=== PATIENT | female | born 1955 | race Caucasian/White ===

== ENCOUNTER → 2018-02-09 08:23 | Outpatient (CLI) | payer OTHER, SELFPAY ==
--- NOTE | 2018-02-09 08:27 | BI_ITS ---
MAMMOGRAPHY - BILATERAL SCREENING REASON FOR EXAM: Female, 62 years old. Routine annual screening examination. PERTINENT HISTORY: Aunt with breast cancer. TECHNIQUE: Digital bilateral breast devorah (3D mammographic acquisition) in the CC and MLO projections. 2-D mediolateral oblique (MLO) and craniocaudad (CC) views of both breasts were obtained. CAD: Full Field Digital Mammography with Computer Added Detection was performed. COMPARISON: Comparison is made with prior abdomen examination dated March 14, 2017. FINDINGS: Breast Composition: There are scattered areas of fibroglandular density. There are no dominant masses or suspicious calcifications. Stable small bilateral axillary lymph nodes. No other significant abnormalities are identified. There has been no significant change since the prior study. BI/SCREENING MAMM (CAD), BILAT IMPRESSION: Stable bilateral screening mammogram. Yearly follow-up mammogram recommended. (A) ASSESSMENT CATEGORY: BIRADS Category 2: Benign. A letter regarding these results will be sent to the patient by the facility within 30 days. Approximately 10% of breast cancers are not detected by mammography. A normal mammogram should not delay biopsy of a clinically suspicious abnormality. [id number] Electronically Signed: Delfino Zhang MD at 9:32 EDT Tel [phone], Service support ,
== END ==
PROVIDERS: Visit Provider Nurse Practitioner Women's Health
DX: Z12.31 Encounter for screening mammogram for malignant neoplasm of breast (principal)
CPT/HCPCS: 77063; 77067

== ENCOUNTER → 2018-11-19 09:43 | Outpatient (CLI) | payer OTHER, SELFPAY ==
--- NOTE | 2018-11-19 10:02 | US_ITS ---
STUDY: ABDOMINAL ULTRASOUND - RIGHT UPPER QUADRANT REASON FOR VISIT: Female, 63 years old. 2 week history of right upper quadrant pain. TECHNIQUE: Ultrasound evaluation of the right upper quadrant was performed with real-time and static minaya-scale imaging. TECHNICAL QUALITY: Adequate. COMPARISON: None. FINDINGS: Liver: The liver measures 14.7 cm. There is normal echogenicity of the liver. The bile ducts are within normal limits. There is hepatic color flow. The direction of portal flow is hepatopetal. There is no demonstrated mass lesion. Gallbladder: Normal distended gallbladder. The gallbladder wall is mildly thickened and measures 3.3 mm. Findings are suggestive of adenomyomatosis of the gallbladder wall. There is a negative sonographic Vasques's sign. There is no pericholecystic fluid. There are no gallstones. Common Bile Duct (C.B.D.): The common bile duct measures 3.2 mm. Pancreas: Normal size of the head, body and tail of the pancreas. There is increased echogenicity of the pancreas. There is no demonstrated pancreatic mass or cyst. Right Kidney: Normal size of the right kidney. The right kidney measures 11 cm x 6.7 cm x 5.4 cm. Normal renal cortex. The right cortex measures 1.5 cm. There is no demonstrated renal mass or cyst. There is no right hydronephrosis. US/Abdomen Limited IMPRESSION: Mild gallbladder wall thickening suggestive of adenomyomatosis. Correlation with the HIDA scan and fatty meal challenge is recommended. Electronically Signed: Delfino Zhang, at 11:27 EDT , Service support ,
[2018-11-19 11:16] LABS: Absolute Lymphocyte Count 0.75 X10^3/uL (0.83-4.51); Absolute Neutrophil Count 5.4 X10^3/uL (2.0-7.7); Basophil# 0.02 X10^3/uL; Basophil% 0.3 % (0-1); Eosinophil# 0.01 X10^3/uL; Eosinophils% 0.2 % (0-5); Hematocrit 39.9 % (37-47); Hemoglobin 12.9 g/dL (12.0-15.0); Lymphocyte # 0.75 X10^3/ul (4.0); Lymphocyte % 11.3 % (19-41); Mean Corp Hgb Conc 32.3 g/dL (32-36); Mean Corpuscular Hgb 29.1 pg (27.0-32.0); Mean Corpuscular Volume 89.9 fL (81-99); Mean Platelet Vol. 12.4 fl (6.2-12.0); Monocyte# 0.43 X10^3/uL; Monocyte% 6.5 % (0-10); NRBC Flagged by Analyzer 0 % (0-5); Neutrophil # 5.43 X10^3/uL (2.7-7.7); Neutrophil % 81.4 % (47-70); Platelet Count 215 K/mm3 (150-450); RBC Distribution Width CV 13.2 % (11.6-14.6); RBC Distribution Width SD 43.3 fl (35.1-43.9); Red Blood Count 4.44 M/mm3 (4.2-5.4); White Blood Count 6.7 K/mm3 (4.4-11.0)
[2018-11-19 11:24] LABS: AST(SGOT) 40 U/L (15-37); Alanine Aminotransfer ALT/SGPT 60 U/L (13-56); Albumin, Serum 3.7 g/dL (3.2-5.0); Alkaline Phosphatase 205 U/L (45-117); Anion Gap 6 (5-15); BUN 7 mg/dL (7-18); BUN/Creat Ratio 10.7 RATIO (10-20); Calcium,Total 9.2 mg/dL (8.5-10.1); Chloride 105 mmol/L (98-107); Creatinine, Serum 0.65 mg/dL (0.55-1.02); EST Glomerular Filtration Rate 97 mL/min (>60); Est Glom Filt Rate - Afr Amer 117 mL/min (>60); Globulin 3.7 g/dL (2.2-4.2); Glucose 111 mg/dL (74-106); Potassium 3.8 mmol/L (3.5-5.1); Protein, Total 7.4 g/dL (6.4-8.2); Sodium Level 138 mmol/L (136-145)
== END ==
PROVIDERS: Referring Provider Nurse Practitioner Family; Visit Provider Nurse Practitioner Family
DX: R10.11 Right upper quadrant pain (principal)
CPT/HCPCS: 36415; 76705; 80053; 85025

== ENCOUNTER 2018-11-23 11:04 | Observation (INO) | payer OTHER, SELFPAY ==
[2018-11-23] VITALS (7 sets, daily range): BP systolic 125–156; BP diastolic 73–87; PULSE 79–109; RESP 16–18; TEMP 36.7–37; O2SAT 93–95; BMI 33.3; BMI 33.7
[2018-11-23] MEDS: Ondansetron 4 MG/2 ML Vial IV (11:53)
[2018-11-23] MEDS: 0.9% Normal Saline 1,000 ML 125 ML IV ×2 (11:53→19:50)
[2018-11-23] MEDS: Morphine 4 MG/ML Syringe IV ×2 (11:53→16:34)
[2018-11-23 12:19] LABS: Absolute Neutrophil Count 5.5 X10^3/uL (2.0-7.7); Basophil# 0.05 X10^3/uL; Basophil% 0.7 % (0-1); Eosinophil# 0.07 X10^3/uL; Hematocrit 42.6 % (37-47); Lymphocyte % 14.1 % (19-41); Mean Corp Hgb Conc 32.9 g/dL (32-36); Mean Corpuscular Hgb 29.1 pg (27.0-32.0); Mean Corpuscular Volume 88.6 fL (81-99); Mean Platelet Vol. 11.3 fl (6.2-12.0); Monocyte# 0.44 X10^3/uL; Monocyte% 6.2 % (0-10); NRBC Flagged by Analyzer 0 % (0-5); Neutrophil # 5.48 X10^3/uL (2.7-7.7); Neutrophil % 77.6 % (47-70); Platelet Count 289 K/mm3 (150-450); RBC Distribution Width CV 13.2 % (11.6-14.6); RBC Distribution Width SD 43.1 fl (35.1-43.9); Red Blood Count 4.81 M/mm3 (4.2-5.4); White Blood Count 7.1 K/mm3 (4.4-11.0)
[2018-11-23 12:25] LABS: ALB/GLOB Ratio 0.8 RATIO (0.9-2.4); AST(SGOT) 17 U/L (15-37); Alanine Aminotransfer ALT/SGPT 35 U/L (13-56); Albumin, Serum 3.3 g/dL (3.2-5.0); Alkaline Phosphatase 195 U/L (45-117); Anion Gap 6 (5-15); BUN 10 mg/dL (7-18); BUN/Creat Ratio 14.4 RATIO (10-20); Chloride 103 mmol/L (98-107); EST Glomerular Filtration Rate 90 mL/min (>60); Est Glom Filt Rate - Afr Amer 109 mL/min (>60); Estimated Creatinine Clearance 70.11 ml/min; Glucose 106 mg/dL (74-106); Lipase 59 U/L (73-393); Potassium 3.4 mmol/L (3.5-5.1); Protein, Total 7.3 g/dL (6.4-8.2); Sodium Level 137 mmol/L (136-145)
--- NOTE | 2018-11-23 12:35 | CT_ITS ---
STUDY: CT ABDOMEN AND PELVIS WITH CONTRAST REASON FOR EXAM: Female, 63 years old. Right upper quadrant pain RADIATION DOSAGE (If Supplied By Facility): CTDIvol = ( 15.99 ) mGy, DLP = ( 1189.81 ) mGycm TECHNIQUE: Transaxial images were obtained from the dome of the diaphragm to the symphysis pubis without oral contrast. 100 IV/Oral Isovue 300 was administered. Sagittal and coronal images were reconstructed. Individualized dose optimization techniques were used for this CT. COMPARISON: None. FINDINGS: The visualized lung bases are unremarkable. The visualized portions of the heart are within normal limits. There is likely chronic elevation of the right hemidiaphragm with atelectasis in the right lung base. Normal liver. Normal gallbladder and extrahepatic biliary system. Normal spleen. Normal pancreas. Normal bilateral adrenal glands. Normal right kidney. Normal left kidney. Normal visualized stomach. Normal small intestine. Retained stool noted in the colon. Scattered sigmoid diverticulosis without CT evidence of acute diverticulitis. There is non-visualization of the appendix. Normal abdominal aorta. Normal inferior vena cava. Normal retroperitoneum. Normal urinary bladder. There is absence of the uterus consistent with a prior hysterectomy. Normal abdominal wall. There are diffuse degenerative changes of the visualized lumbar spine. CT/Abdomen/Pelvis WITH Contrast IMPRESSION: No suspicious solid organ abnormality No CT evidence of an acute inflammatory process No free peritoneal fluid, air, or suspicious adenopathy Electronically Signed: Ritchie Dunham MD at 15:27 EDT , Service support ,
[2018-11-23 13:00] LABS: Bacteria 0 SEEN /hpf (None Seen); Mucous, Urine 0 SEEN /hpf (<or=2+); Red Blood Cells-Urine 0 SEEN /hpf (0-5); White Blood Cells 0 SEEN /hpf (0-5)
[2018-11-23 13:06] LABS: Color, Urine Yellow (Yellow); Glucose, Dipstick Normal (Normal); Ketone-Dipstick Negative (Negative); Leukocyte Esterase-Dipstick Negative /ul (Negative); Nitrite-Dipstick Negative (Negative); Occult Blood-Urine Negative /ul (Negative); Protein-Dipstick Negative (Negative); Specific Gravity, Urine 1.005 (1.002-1.030); Urine Bilirubin Dipstick Negative (Negative); Urine Clarity Clear (Clear); Urine Urobilinogen Normal (Normal)
[2018-11-23 13:12] LABS: Squamous Epithelial Cells - UA 0-5 SEEN /hpf (5-10)
--- NOTE | 2018-11-23 15:37 | NURSING ---
DR BROUSSARD LET DR TINSLEY KNOW ABOUT PATIENT
--- NOTE | 2018-11-23 15:44 | ED.VISSUMM ---
- ER Visit Summary Date of Service: 11/23/18 Chief Complaint: [Abdominal pain] History of Present Illness: The patient is a 63 F [ presents to the emerge permit with complaint of abdominal pain that she has had for 2 to 3 weeks. Patient gives history of recent shingles infection to her right back. Patient subsequently was believed to have developed a postherpetic neuralgia and was started on Vicodin and gabapentin which she states made her feel woozy and spacey. Patient states that she is lost about 11 pounds in the last week and she has no appetite. She had a ultrasound of the gallbladder 3 days ago as well as blood work that showed elevated liver enzymes and some thickening of the gallbladder wall and it was recommended that she have a HIDA scan. Patient denies any fevers. She denies urinary symptoms. Patient has history of anxiety and high cholesterol. Patient had prior appendectomy and hysterectomy. Patient states that pain medicines not helping her and she cannot sleep at night.] Her pain is not pleuritic. She denies any chest pain or shortness of breath. Physical Examination: [HEENT-PERRLA, EOMI. Cranial nerves II through XII grossly intact. TMs clear. Mucous membranes moist. No adenopathy. Cardiovascular-regular rate and rhythm without murmur or ectopy Lungs-clear to auscultation, chest wall stable without crepitus or subcu emphysema Abdomen-normoactive bowel sounds, soft. Patient has tenderness in the right upper quadrant with some guarding. There is no rebound, rigidity, or peritoneal signs. Extremities-intact ?4, normal range of motion, normal pulses, atraumatic] Test Results: [CBC with differential obtained on arrival showed a white count of 7.1, hemoglobin 14, hematocrit 43, platelet 289. Chemistries unremarkable. LFTs were normal. Lipase was 59.] CT scan of the abdomen and pelvis with IV and p.o. contrast showed nothing acute. Emergency Department Course and Treatment: [Patient was medicated with morphine and Zofran and initially had good pain relief within the pain began to worsen once again she was given another dose of morphine] Treatment Plan: [Patient continues to experience pain and is not comfortable going home. Patient will be admitted for pain control and further evaluation of her abdominal pain.] Disposition: [Admit] Impression: [Abdominal pain-etiology uncertain] This note was generated with Dragon dictation software. It may contain incorrect words, spelling, and punctuation that were not noted in review of the chart prior to signing ED Disposition - Plan for ED Patient: Referrals: Yohannes Ballard MD [Primary Care Provider] -
--- NOTE | 2018-11-23 16:09 | NURSING ---
312 OBS ALVINA INTRACTABLE ABD PAIN
--- NOTE | 2018-11-23 17:29 | PCM.HP.STD ---
<Kristen Wharton - Last Filed: 11/23/18 18:14> Problem List (1) Anxiety Status: Chronic (2) Hyperlipemia Status: Chronic History of Present Illness Date of Admission: 11/23/18 Chief Complaint: Abdominal pain. The patient is a 63 year old F who presents emergency room due to abdominal pain. Patient reports she has had abdominal pain for approximately the last 2 to 3 weeks. She reports she was treated for shingles at the end of October with acyclovir and prednisone and shortly after completing prednisone she developed right upper quadrant abdominal pain. She describes associated intermittent nausea, vomiting. She reports her abdominal pain is not worse following oral intake however she has ate very little over the past few weeks. She denies change in bowel habits. She does reports she has taken NSAIDs frequently over the past 2 weeks due to abdominal pain. Her primary care physician prescribed her Vicodin which she reports did not help with the pain. She reports she has been miserable at home and unable to sleep due to her abdominal pain. Her primary care physician ordered an abdominal ultrasound which was completed last Friday and showed a gallbladder wall thickening which was mild. Patient continued to have significant pain and presented to ER today. Her past medical history is significant for hyperlipidemia and anxiety. Past Medical History Past Medical History (Chronic Problems): Chronic Problems (Last Updated 11/26/17 @ 13:48 by Leah Clayton) Anxiety (Chronic) Hyperlipemia (Chronic) Medical History: Medical History (Last Updated 11/26/17 @ 13:48 by Leah Clayton) Anxiety F41.9 Arthritis M19.90 Allergies No Known Allergies Allergy (Verified 11/23/18 11:04) Home Medications: Ambulatory Orders Medication Instructions Recorded Loratadine [Claritin] 10 mg PO DAILY 10/19/13 traZODone [Desyrel] 100 mg PO DAILY 10/19/13 coenzyme Q10 200 mg capsule 200 mg PO DAILY 11/26/17 Echinacea Purpurea Aerial 350 mg PO DAILY 11/23/18 [Echinacea] L.acidoph,Paracasei, B.lactis 1 cap PO DAILY 11/23/18 [Probiotic] Latanoprost 1 drp OP QHS 11/23/18 Multivitamin with Minerals 1 tab PO DAILY 11/23/18 [Multiple Vitamin] [place]-3/Dha/Epa/Fish Oil [[place] 3 1 cap PO DAILY 11/23/18 500 Softgel] Rosuvastatin Calcium [Crestor] 5 mg PO QODAY 11/23/18 Surgical History: Surgical History (Last Reviewed 11/23/18 @ 17:33 by HENRIQUE Silva) H/O bilateral oophorectomy Z90.722 History of LAVH Z90.710 History of appendectomy Z90.49 Rectocele N81.6 Surgical History: - - Hysterectomy, rectocele repair, vaginal cuff revision, appendectomy, umbilical herniography as infant. 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 Review of Systems Constitutional: Denies: Chills, Fever, Weight Change HEENT: Denies: Head Aches, Sinus Congestion, Sinus Drainage Cardiovascular: Denies: Chest Pain, Palpitations Respiratory: Denies: Cough, Shortness of breath at rest, Sputum production Gastrointestinal: Reports: Abdominal Pain, Nausea, Vomiting. Denies: Constipation, Diarrhea Genitourinary: Denies: Dysuria Musculoskeletal: Denies: Joint Pain, Joint Tenderness Skin: Denies: Rash, Wounds Neurological: Denies: Numbness, Tingling, Focal weakness Psychiatric: Reports: Anxiety. Denies: Depression, Homicidal Ideations, Suicidal Ideations Hematologic/ Lymphatic: Denies: Easy Bruising, Easy Bleeding VTE Information - Inpt Only VTE Present on Admission: No VTE Mechan Device Prophylaxis: None VTE Pharm Prophylaxis ordered?: Yes Patient Problems: Active and Suspected Problems (Last Updated 11/26/17 @ 13:48 by Leah Clayton) Right upper quadrant pain (Acute) - Physical Exam General: Alert, Oriented x3, Cooperative HEENT: Atraumatic, PERRLA, EOMI, Normocephalic Neck: Supple, No JVD, Negative Carotid Bruits Lungs: Clear to auscultation, Normal air movement Cardiovascular: Regular rate, Regular Rhythm, Normal S1, Normal S2, No murmurs Abdomen: Bowel Sounds Present, Soft, Non-Distended, Tender - Right upper quadrant Extremities: No clubbing, No cyanosis, No edema, Capillary Refill Less than 3 Seconds Skin: No rashes, No breakdown Musculoskeletal: No Tenderness to Palpation of Joints or Extremities Neurological: Cranial nerves II-XII grossly intact, Neuro grossly intact Psych/Mental Status: Normal Affect, Appropriate Vital Signs Temp Pulse Resp BP Pulse Ox 98.6 F 84 16 139/83 H 93 11/23/18 11:04 11/23/18 16:35 11/23/18 16:35 11/23/18 16:35 11/23/18 16:35 Oxygen Delivery Method Room Air Weight: 194 lb 0.108 oz Body Mass Index (BMI) 33.3 Laboratory Tests Past 24 Hrs 11/23/18 11/23/18 11/23/18 11:45 11:45 12:50 WBC 7.1 RBC 4.81 Hgb 14.0 Hct 42.6 MCV 88.6 MCH 29.1 MCHC 32.9 RDW Std Deviation 43.1 RDW Coeff of Ethan 13.2 Plt Count 289 MPV 11.3 Immature Gran % (Auto) 0.400 Neut % (Auto) 77.6 H Lymph % (Auto) 14.1 L [place] % (Auto) 6.2 Eos % (Auto) 1.0 Baso % (Auto) 0.7 Absolute Neuts (auto) 5.5 Absolute Lymphs (auto) 1.00 Absolute Nucleated RBC 0.00 Nucleated RBC % 0 Sodium 137 Potassium 3.4 L Chloride 103 Carbon Dioxide 28.0 Anion Gap 6 BUN 10 Creatinine 0.70 Estim Creat Clear Calc 70.11 Est GFR (MDRD) Af Amer 109 Est GFR (MDRD) Non-Af 90 BUN/Creatinine Ratio 14.4 Glucose 106 Calcium 9.0 Total Bilirubin 0.60 AST 17 ALT 35 Alkaline Phosphatase 195 H Total Protein 7.3 Albumin 3.3 Globulin 4.0 Albumin/Globulin Ratio 0.8 L Lipase 59 L Urine Color Yellow Urine Clarity Clear Urine pH 7.0 Ur Specific [place] 1.005 Urine Protein Negative Urine Glucose (UA) Normal Urine Ketones Negative Urine Occult Blood Negative Urine Nitrite Negative Urine Bilirubin Negative Urine Urobilinogen Normal Ur Leukocyte Esterase Negative Urine RBC 0 SEEN Urine WBC 0 SEEN Ur Squamous Epith Cells 0-5 SEEN Urine Bacteria 0 SEEN Urine Mucus 0 SEEN Assessment/Plan All Active Problems (Last Updated 11/26/17 @ 13:48 by Leah Clayton) Right upper quadrant pain (Acute) 1. RUQ abdominal pain-CT of abdomen pelvis shows no suspicious solid organ abnormality, no evidence of acute inflammatory process. Patient had abdominal ultrasound 11/19/2018 which showed mild gallbladder wall thickening suggestive of adenomyomatosis. LFTs normal. Mildly elevated alkaline phosphatase. Normal lipase. Will obtain HIDA scan. N.p.o. PRN pain regimen. Possible surgical consultation pending HIDA scan results. 2. Hyperlipidemia-continue statin regimen. 3. Anxiety-continue home trazodone regimen. DVT prophylaxis-Lovenox subcu This patient was seen by HENRIQUE Silva under the supervision of Dr. Tolbert. <Braulio Tolbert - Last Filed: 11/23/18 19:23> Problem List (1) Anxiety Status: Chronic (2) Hyperlipemia Status: Chronic (3) Right upper quadrant pain Status: Acute History of Present Illness The patient is a 63 year old F came to ED with right upper quadrant and epigastric pain. Patient has abdominal pain ongoing for last 2 to 3 weeks leading right sided upper back on the area of shingles. She had shingles eruption about 3 to 4 weeks ago and was treated with acyclovir and prednisone. Currently she complains of epigastric and right upper quadrant pain for last 1 week along with loss of appetite. Denies fever or chills. She had right upper quadrant sonogram by PCP which shows mild gallbladder wall thickening 3.3 mm and findings suggestive of adenomyomatosis. No gallbladder stones/PC fluid or CBD dilatation. CBD 3.2 mm. Normal-sized fat body and tail of pancreas. She denies any previous history of right upper quadrant pain or cholecystitis. In ED, she had CT abdomen done which shows normal liver, normal gallbladder and extrahepatic bloody system. Normal pancreas. [] Past Medical History Medical History: Medical History (Last Updated 11/26/17 @ 13:48 by Leah Clayton) Anxiety F41.9 Arthritis M19.90 Allergies No Known Allergies Allergy (Verified 11/23/18 11:04) Surgical History: Surgical History (Last Reviewed 11/23/18 @ 17:33 by HENRIQUE Silva) H/O bilateral oophorectomy Z90.722 History of LAVH Z90.710 History of appendectomy Z90.49 Rectocele N81.6 - *Family History Maternal Family History: Family History (Last Reviewed 11/23/18 @ 17:30 by HENRIQUE Silva) Mother CVA (cerebral vascular accident) Paternal Family History: Family History (Last Reviewed 11/23/18 @ 17:30 by HENRIQUE Silva) Mother CVA (cerebral vascular accident) Review of Systems Constitutional: Reports: Chills. Denies: Fever - Physical Exam General: Alert, Oriented x3, Cooperative HEENT: Atraumatic, PERRLA, EOMI, Normocephalic Neck: Supple, No JVD, Negative Carotid Bruits Lungs: Clear to auscultation, Normal air movement, No rhonchi, No wheeze, No rales Cardiovascular: Regular rate, No murmurs Abdomen: Bowel Sounds Present, Soft, Non Tender, No Hepato-splenomegaly, Tender - Right upper quadrant Tenderness present on right upper quadrant and epigastrium. Liver not enlarged. Gallbladder not palpable. No rebound tenderness. Extremities: No edema, Capillary Refill Less than 3 Seconds Skin: No rashes, No breakdown, - - Gallbladder shingles lesions have healed. No scab but mild redness over the right lower chest on posterolateral side Musculoskeletal: No Tenderness to Palpation of Joints or Extremities Neurological: Cranial nerves II-XII grossly intact Psych/Mental Status: Normal Affect, Appropriate Vital Signs Temp Pulse Resp BP Pulse Ox 98.3 F 87 16 137/87 H 93 11/23/18 18:05 11/23/18 18:05 11/23/18 18:05 11/23/18 18:05 11/23/18 18:05 Oxygen Delivery Method Room Air Weight: 196 lb 3.382 oz Body Mass Index (BMI) 33.7 Laboratory Tests Past 24 Hrs 11/23/18 11/23/18 11/23/18 11:45 11:45 12:50 WBC 7.1 RBC 4.81 Hgb 14.0 Hct 42.6 MCV 88.6 MCH 29.1 MCHC 32.9 RDW Std Deviation 43.1 RDW Coeff of Ethan 13.2 Plt Count 289 MPV 11.3 Immature Gran % (Auto) 0.400 Neut % (Auto) 77.6 H Lymph % (Auto) 14.1 L [place] % (Auto) 6.2 Eos % (Auto) 1.0 Baso % (Auto) 0.7 Absolute Neuts (auto) 5.5 Absolute Lymphs (auto) 1.00 Absolute Nucleated RBC 0.00 Nucleated RBC % 0 Sodium 137 Potassium 3.4 L Chloride 103 Carbon Dioxide 28.0 Anion Gap 6 BUN 10 Creatinine 0.70 Estim Creat Clear Calc 70.11 Est GFR (MDRD) Af Amer 109 Est GFR (MDRD) Non-Af 90 BUN/Creatinine Ratio 14.4 Glucose 106 Calcium 9.0 Total Bilirubin 0.60 AST 17 ALT 35 Alkaline Phosphatase 195 H Total Protein 7.3 Albumin 3.3 Globulin 4.0 Albumin/Globulin Ratio 0.8 L Lipase 59 L Urine Color Yellow Urine Clarity Clear Urine pH 7.0 Ur Specific [place] 1.005 Urine Protein Negative Urine Glucose (UA) Normal Urine Ketones Negative Urine Occult Blood Negative Urine Nitrite Negative Urine Bilirubin Negative Urine Urobilinogen Normal Ur Leukocyte Esterase Negative Urine RBC 0 SEEN Urine WBC 0 SEEN Ur Squamous Epith Cells 0-5 SEEN Urine Bacteria 0 SEEN Urine Mucus 0 SEEN Assessment/Plan This patient was seen in conjunction with Kristen RYAN. I have independently interviewed and examined the patient and reviewed pertinent history, examination findings, laboratory and plan of management. I have reviewed the note and agree with the documented findings with the few additional points. In brief, patient is admitted for right upper quadrant abdominal pain. CT abdomen is negative. Right upper quadrant sonogram shows 3.3 mm GB wall thickness and findings suggestive of adenomyomatosis. No gallstones/pericholecystic fluid or CBD dilatation. LFT normal except alkaline phosphatase 195. HIDA scan with cholecystokinin ordered. Further management depends on HIDA scan. I have discussed my assessment with Kristen RYAN and orders have been reviewed. Code Visit OBSV E&M: [id number] Initial observation care L3
[2018-11-23] MEDS: Morphine 2 MG/ML Syringe IV ×2 (19:28→22:38)
[2018-11-23] MEDS: traZODone 100 MG Tablet PO (21:22)
[2018-11-24] MEDS: 0.9% Normal Saline 1,000 ML 125 ML IV ×2 (03:55→16:02)
[2018-11-24 03:56] VITALS: BP 148/70; PULSE 93; RESP 16; TEMP 36.9; O2SAT 92
[2018-11-24] MEDS: Enoxaparin 40 MG/0.4 ML Syringe SC (05:04)
[2018-11-24 06:35] LABS: ALB/GLOB Ratio 0.9 RATIO (0.9-2.4); AST(SGOT) 17 U/L (15-37); Alanine Aminotransfer ALT/SGPT 30 U/L (13-56); Alkaline Phosphatase 174 U/L (45-117); Anion Gap 8 (5-15); BUN 11 mg/dL (7-18); BUN/Creat Ratio 15.8 RATIO (10-20); Calcium,Total 8.1 mg/dL (8.5-10.1); Chloride 107 mmol/L (98-107); EST Glomerular Filtration Rate 90 mL/min (>60); Est Glom Filt Rate - Afr Amer 109 mL/min (>60); Estimated Creatinine Clearance 70.11 ml/min; Globulin 3.5 g/dL (2.2-4.2); Glucose 92 mg/dL (74-106); Protein, Total 6.5 g/dL (6.4-8.2); Sodium Level 143 mmol/L (136-145)
[2018-11-24 08:52] VITALS: BP 154/70; PULSE 89; RESP 18; TEMP 36.8; O2SAT 95
--- NOTE | 2018-11-24 10:00 | NM_ITS ---
STUDY: HIDA SCAN REASON FOR EXAM: Female, 63 years old. Right upper quadrant pain, nausea TECHNIQUE: Patient was injected with 5.6 mCi of technetium 99m mebrofenin, and for gallbladder contraction, 1 mcg of sincalide COMPARISON: Previous CT FINDINGS: There is normal uptake, concentration, and excretion of radiotracer by the liver into the biliary tree. Free flow of radiotracer into the duodenum and small intestine noted by 15 minutes. The gallbladder is noted between 30 and 45 minutes. After sincalide injection, gallbladder ejection fraction was calculated at 50% which is within normal range. NM/Hepatobilliary Img w/Pharm Int IMPRESSION: Normal study Electronically Signed: Ritchie Dunham MD at 11:33 EDT , Service support ,
[2018-11-24] MEDS: Morphine 2 MG/ML Syringe IV ×2 (12:48→20:53)
[2018-11-24 12:50] VITALS: BP 150/72; PULSE 81; RESP 18; TEMP 36.7; O2SAT 95
--- NOTE | 2018-11-24 12:52 | CON.PCM_ITS ---
Reason for Consult Date of Consultation: 11/24/18 History of Present Illness: The patient is a 63 year old F presented to ER due to right upper quadrant pain. Patient states about 3 weeks ago she did have shingles on her right back this was her second time. Patient did get antibiotics as well as prednisone from her PCP. About 2 weeks ago she states she started having some burning/stabbing her right upper quadrant to rates it as 7?10/10 she went back and saw her PCP who diagnosed her with post herpetic neuralgia and gave her some Vicodin as well as gabapentin which patient did take for 3 days. Patient states that the pain would be a 6/10 it during the day and then a 10/10 at night she was unable to sleep. She denies any change in the pain with food. Patient did return to see her PCP who did increase the dose of gabapentin but patient states that made no change. Patient admits to decreased appetite since last Friday so he really been having some fruits crackers and small pancakes. Patient states that between Friday and Friday she had 6 emesis episodes and she does have occasional nausea. Patient again saw her PCP and they increase the gabapentin and also gave her some Percocet patient had ultrasound of the gallbladder. The ultrasound did not show any gallstones or sludge showed a gallbladder wall about 3 mm no pericholecystic fluid, normal common bile ducts. Her AST and ALT and alk phos were slightly elevated at that time. Repeat LFTs did show normal AST and ALT. Patient does admit to taking the Vicodin for the last week about 4-day and also taking 650 of Tylenol at least 3 times a day. But patient denies taking ibuprofen or Advil. Patient does states she has history of indigestion which she describes tenderness to the epigastric Past Medical History Past Medical History (Chronic Problems): Chronic Problems (Last Updated 11/26/17 @ 13:48 by Leah Clayton) Anxiety (Chronic) Hyperlipemia (Chronic) Medical History: Medical History (Last Updated 11/26/17 @ 13:48 by Leah Clayton) Anxiety F41.9 Arthritis M19.90 Allergies No Known Allergies Allergy (Verified 11/23/18 11:04) Home Medications: Ambulatory Orders Medication Instructions Recorded Loratadine [Claritin] 10 mg PO DAILY 10/19/13 traZODone [Desyrel] 100 mg PO DAILY 10/19/13 coenzyme Q10 200 mg capsule 200 mg PO DAILY 11/26/17 Echinacea Purpurea Aerial 350 mg PO DAILY 11/23/18 [Echinacea] L.acidoph,Paracasei, B.lactis 1 cap PO DAILY 11/23/18 [Probiotic] Latanoprost 1 drp OP QHS 11/23/18 Multivitamin with Minerals 1 tab PO DAILY 11/23/18 [Multiple Vitamin] [place]-3/Dha/Epa/Fish Oil [[place] 3 1 cap PO DAILY 11/23/18 500 Softgel] Rosuvastatin Calcium [Crestor] 5 mg PO QODAY 11/23/18 Surgical History: Surgical History (Last Reviewed 11/23/18 @ 17:33 by HENRIQUE Silva) H/O bilateral oophorectomy Z90.722 History of LAVH Z90.710 History of appendectomy Z90.49 Rectocele N81.6 Surgical History: - - Hysterectomy, rectocele repair, vaginal cuff revision, appendectomy, umbilical herniography as . Psychiatric History: Anxiety PERIOPERATIVE ASSISTANT History: No pertinent PERIOPERATIVE ASSISTANT history Lives: Spouse/ Significant Other Smoking Status: Former smoker Alcohol: Rare Drugs: None - *Family History Maternal Family History: Family History (Last Reviewed 11/23/18 @ 17:30 by HENRIQUE Silva) Mother CVA (cerebral vascular accident) Paternal Family History: Family History (Last Reviewed 11/23/18 @ 17:30 by HENRIQUE Silva) Mother CVA (cerebral vascular accident) History Items: - - Denies known paternal medical history including cardiac history. Review of Systems Constitutional: Reports: Anorexia HEENT: Denies: Difficulty Swallowing Cardiovascular: Denies: Chest Pain Respiratory: Denies: Cough Gastrointestinal: Reports: Abdominal Pain, Constipation, Nausea. Denies: Diarrhea Skin: Reports: Rash - Groin Psychiatric: Denies: Depression Hematologic/ Lymphatic: Denies: Easy Bleeding Patient Problems: Active and Suspected Problems (Last Updated 11/26/17 @ 13:48 by Leah Clayton) Right upper quadrant pain (Acute) - Physical Exam General: Alert, Oriented x3, Cooperative, No apparent distress HEENT: Atraumatic Lungs: Normal air movement Cardiovascular: Regular rate Abdomen: Soft, Non-Distended, Tender - LUQ & epigastric, no PS, - - Well-healed incisions near the umbilicus Extremities: No edema Skin: - - rash at lower left abd fold and groin folds Neurological: Cranial nerves II-XII grossly intact Psych/Mental Status: Normal Affect Vital Signs Temp Pulse Resp BP Pulse Ox 98.2 F 89 18 154/70 H 95 11/24/18 08:52 11/24/18 08:52 11/24/18 08:52 11/24/18 08:52 11/24/18 08:52 Oxygen Delivery Method Room Air Weight: 196 lb 3.382 oz Body Mass Index (BMI) 33.7 Intake and Output for Last 24 Hours 11/22/18 11/23/18 11/24/18 23:59 23:59 23:59 Intake Total 3774 / 3774 Output Total 1000 / 1000 Balance 2774 / 2774 Laboratory Tests Past 24 Hrs 11/23/18 11/24/18 12:50 05:28 Sodium 143 Potassium 4.0 Chloride 107 Carbon Dioxide 28.0 Anion Gap 8 BUN 11 Creatinine 0.70 Estim Creat Clear Calc 70.11 Est GFR (MDRD) Af Amer 109 Est GFR (MDRD) Non-Af 90 BUN/Creatinine Ratio 15.8 Glucose 92 Calcium 8.1 L Total Bilirubin 0.40 AST 17 ALT 30 Alkaline Phosphatase 174 H Total Protein 6.5 Albumin 3.0 L Globulin 3.5 Albumin/Globulin Ratio 0.9 Urine Color Yellow Urine Clarity Clear Urine pH 7.0 Ur Specific [place] 1.005 Urine Protein Negative Urine Glucose (UA) Normal Urine Ketones Negative Urine Occult Blood Negative Urine Nitrite Negative Urine Bilirubin Negative Urine Urobilinogen Normal Ur Leukocyte Esterase Negative Urine RBC 0 SEEN Urine WBC 0 SEEN Ur Squamous Epith Cells 0-5 SEEN Urine Bacteria 0 SEEN Urine Mucus 0 SEEN Assessment/Plan All Active Problems (Last Updated 11/26/17 @ 13:48 by Leah Clayton) Right upper quadrant pain (Acute) 63 y/o F with RUQ pain, LUQ/epigastric pain on exam, elevated LFT-resolved. Reviewed patient's ultrasound, CAT scan, HIDA scan results with the patient. Ultrasound showed some had adenomyomatosis, no gallstones, normal common bile duct, no pericholecystic fluid, CAT scan within normal limits, HIDA scan ejection fraction greater than 50%. Patient also denies making right upper quadrant pain any worse even when she was eating more prior to a week ago. No current indications to remove the gallbladder. Patient does give a history of indigestion where she states she goes through a bottle of Pepto-Bismol but every 3 months does have Prilosec [id number] however she will uses about once a month. Patient denies ever having EGD in the past. Patient did have a colonoscopy about a year ago which was negative per the patient. Patient just received IV Protonix here in the hospital. On exam patient's pain was in the left upper quadrant, epigastric and not on the right upper quadrant even on this where the patient said she was having pain. Discussed with patient plan to do an EGD possible biopsy since this could be the cause of her pain. Patient does admit to occasional nausea and did have episodes of vomiting last Friday through Friday. I have offered the patient EGD for evaluation. I have explained the risks/benefits of the procedure and described the procedure. I have discussed the risks with the patient, including but not limited to: infection, bleeding, perforation of the GI tract requiring emergency surgery, inability to complete the procedure, injury to any internal organs, complications of anesthesia, etc. - the patient understands and agrees to proceed. I have answered all the patient's questions to the patient's satisfaction and the patient has no further questions. Did also discuss with Kristen Craig M.D. Pager: [phone] [facility] [address] [place] [address], [facility], [address] [place] [address] Office: [phone] Code Visit Inpatient E&M: 35700 Init Hosp L2
--- NOTE | 2018-11-24 12:59 | NURSING ---
Dr. Craig called and states that EGD will be tomorrow at 0730AM and that pt may have clear liquids today.
--- NOTE | 2018-11-24 13:00 | PN_ITS ---
<Kristen Wharton - Last Filed: 11/24/18 13:05> Patient Problems: Active and Suspected Problems (Last Updated 11/26/17 @ 13:48 by Leah Clayton) Right upper quadrant pain (Acute) Subjective: Patient seen and examined. Reports abdominal pain is mildly improved overnight. Denies nausea, vomiting. - Physical Exam General: Alert, Oriented x3, Cooperative HEENT: Atraumatic, PERRLA, EOMI, Normocephalic Neck: Supple, No JVD, Negative Carotid Bruits Lungs: Clear to auscultation, Normal air movement Cardiovascular: Regular rate, Regular Rhythm, Normal S1, Normal S2, No murmurs Abdomen: Bowel Sounds Present, Soft, Non-Distended, Tender Extremities: No clubbing, No cyanosis, No edema, Capillary Refill Less than 3 Seconds Skin: No rashes, No breakdown, - - Erythematous rash lower left abdomen and groin. Musculoskeletal: No Tenderness to Palpation of Joints or Extremities Neurological: Cranial nerves II-XII grossly intact, Neuro grossly intact Psych/Mental Status: Normal Affect, Appropriate Vital Signs Temp Pulse Resp BP Pulse Ox 98.1 F 81 18 150/72 H 95 11/24/18 12:50 11/24/18 12:50 11/24/18 12:50 11/24/18 12:50 11/24/18 12:50 Oxygen Delivery Method Room Air Weight: 196 lb 3.382 oz Body Mass Index (BMI) 33.7 Intake and Output for Last 24 Hours 11/22/18 11/23/18 11/24/18 23:59 23:59 23:59 Intake Total 3774 / 3774 Output Total 1000 / 1000 Balance 2774 / 2774 Laboratory Tests Past 24 Hrs 11/23/18 11/24/18 12:50 05:28 Sodium 143 Potassium 4.0 Chloride 107 Carbon Dioxide 28.0 Anion Gap 8 BUN 11 Creatinine 0.70 Estim Creat Clear Calc 70.11 Est GFR (MDRD) Af Amer 109 Est GFR (MDRD) Non-Af 90 BUN/Creatinine Ratio 15.8 Glucose 92 Calcium 8.1 L Total Bilirubin 0.40 AST 17 ALT 30 Alkaline Phosphatase 174 H Total Protein 6.5 Albumin 3.0 L Globulin 3.5 Albumin/Globulin Ratio 0.9 Urine Color Yellow Urine Clarity Clear Urine pH 7.0 Ur Specific [place] 1.005 Urine Protein Negative Urine Glucose (UA) Normal Urine Ketones Negative Urine Occult Blood Negative Urine Nitrite Negative Urine Bilirubin Negative Urine Urobilinogen Normal Ur Leukocyte Esterase Negative Urine RBC 0 SEEN Urine WBC 0 SEEN Ur Squamous Epith Cells 0-5 SEEN Urine Bacteria 0 SEEN Urine Mucus 0 SEEN Medical Necessity - Tobacco Use Smoking Status: Former smoker Assessment/Plan All Active Problems (Last Updated 11/26/17 @ 13:48 by Leah Clayton) Right upper quadrant pain (Acute) 1. RUQ abdominal pain-CT of abdomen pelvis shows no suspicious solid organ abnormality, no evidence of acute inflammatory process. Patient had abdominal ultrasound 11/19/2018 which showed mild gallbladder wall thickening suggestive of adenomyomatosis. LFTs normal. Mildly elevated alkaline phosphatase. Normal l ipase. HIDA scan normal. Dr. Craig, general surgery consult placed. Begin clear liquids with n.p.o. after midnight with plans for upper GI tomorrow morning. Continue IV PPI. 2. Hyperlipidemia-continue statin regimen. 3. Anxiety-continue home trazodone regimen. DVT prophylaxis-Lovenox subcu This patient was seen by HENRIQUE Silva under the supervision of Dr. Montelongo. <Hilary Montelongo E - Last Filed: 11/24/18 13:39> - Physical Exam Vital Signs Temp Pulse Resp BP Pulse Ox 98.1 F 81 18 150/72 H 95 11/24/18 12:50 11/24/18 12:50 11/24/18 12:50 11/24/18 12:50 11/24/18 12:50 Oxygen Delivery Method Room Air Weight: 196 lb 3.382 oz Body Mass Index (BMI) 33.7 Intake and Output for Last 24 Hours 11/22/18 11/23/18 11/24/18 23:59 23:59 23:59 Intake Total 3774 / 3774 Output Total 1000 / 1000 Balance 2774 / 2774 Laboratory Tests Past 24 Hrs 11/24/18 05:28 Sodium 143 Potassium 4.0 Chloride 107 Carbon Dioxide 28.0 Anion Gap 8 BUN 11 Creatinine 0.70 Estim Creat Clear Calc 70.11 Est GFR (MDRD) Af Amer 109 Est GFR (MDRD) Non-Af 90 BUN/Creatinine Ratio 15.8 Glucose 92 Calcium 8.1 L Total Bilirubin 0.40 AST 17 ALT 30 Alkaline Phosphatase 174 H Total Protein 6.5 Albumin 3.0 L Globulin 3.5 Albumin/Globulin Ratio 0.9 Assessment/Plan Hospitalist note: I am seeing this patient in conjunction with Kristen Wharton. I independently seen and examined the patient. Progress note above, laboratory data and imaging studies reviewed and I concur with the above work-up plan. Patient admitted because of right upper quadrant abdominal pain that has been going on for sev eral weeks. She has history of shingles in the right upper lateral chest and she has been treated for postherpetic neuralgia for the same location of the pain. She has been on increasing dose of gabapentin over the last several weeks but she continued to have this right upper quadrant abdominal pain which has been more persistent and severe in the last couple of weeks. She reports associated nausea and loss of appetite. Today, she mentioned that her pain is slightly improved, no nausea or vomiting today. Her vital signs are stable. - Physical Exam General: Alert, Oriented x3, Cooperative, No apparent distress. HEENT: Atraumatic, PERRLA, EOMI. Neck: Supple, No JVD, Negative Carotid Bruits, Trachea Midline, Thyroid Normal. Lungs: Clear to auscultation, Normal air movement, No rhonchi, No wheeze, No rales. Cardiovascular: Regular rate, Regular Rhythm, Normal S1, Normal S2, PMI Normal. Abdomen: Bowel Sounds Present, Soft, minimal right upper quadrant tenderness, negative Vasques sign, Non-Distended, No Hepato-splenomegaly. Extremities: No clubbing, No cyanosis, No edema Skin: No rashes, No breakdown Neurological: Cranial nerves are intact, neuro grossly intact Vital Signs are stable. Assessment and plan: #1 right upper quadrant abdominal pain: Unclear etiology. CT scan abdomen and pelvis revealed no acute findings. LFT revealed slight elevated alkaline phosphatase, bilirubin and liver transaminases were normal. Today, she had HIDA scan that was normal. General surgery consulted and recommended upper EGD which will be done tomorrow morning. #2 other chronic medical problems: Stable, continue current medications as above. This note was generated with [employer]ok[employer]ok[employer] software. It may contain incorrect words, spelling, and punctuation that were not noted in checking the note before signing. Code Visit OBSV E&M: 64592 Subsequent observation care L2
[2018-11-24 20:00] VITALS: BP 161/99; PULSE 73; RESP 16; TEMP 36.7; O2SAT 95
[2018-11-24] MEDS: Polyethylene Glycol 3350 17 GM PACKET PO ×2 (20:50→22:26)
[2018-11-24 22:15] VITALS: BP 156/97; PULSE 84; RESP 14; TEMP 36.6; O2SAT 99; BMI 33.7
[2018-11-24] MEDS: traZODone 100 MG Tablet PO (22:26)
[2018-11-24] MEDS: Atorvastatin Calcium 10 MG Tablet PO (22:26)
[2018-11-25] VITALS (7 sets, daily range): BP systolic 112–152; BP diastolic 57–88; PULSE 71–82; RESP 16; TEMP 36.4–37.4; O2SAT 92–95
[2018-11-25] MEDS: Morphine 2 MG/ML Syringe IV ×2 (01:16→05:28)
[2018-11-25] MEDS: 0.9% NaCl Peripheral Flush Adult/Peds IV ×2 (01:17→05:28)
[2018-11-25] MEDS: 0.9% Normal Saline 1,000 ML 125 ML IV ×2 (01:27→08:06)
--- NOTE | 2018-11-25 05:00 | EKG12_ITS ---
Test Reason : AM EKG Blood Pressure : / mmHG Vent. Rate : 081 BPM Atrial Rate : 081 BPM P-R Int : 166 ms QRS Dur : 078 ms QT Int : 412 ms P-R-T Axes : 069 047 059 degrees QTc Int : 478 ms Normal sinus rhythm Normal ECG When compared with ECG of 19-OCT-2013 14:12, No significant change was found Confirmed by CHAZ BENAVIDES, HAWA ([id number]), editor news VIKTORIYA ALMAGUER ([id number]) on 11/27/2018 9:54:02 AM Referred By: Benjamin Parker Confirmed By:PHOENIX WARE MD
[2018-11-25 06:28] LABS: AST(SGOT) 12 U/L (15-37); Alanine Aminotransfer ALT/SGPT 25 U/L (13-56); Albumin, Serum 2.8 g/dL (3.2-5.0); Alkaline Phosphatase 153 U/L (45-117); Bilirubin, Direct 0.15 mg/dL (0.00-0.30); Globulin 3.4 g/dL (2.2-4.2); Lipase 65 U/L (73-393); Protein, Total 6.2 g/dL (6.4-8.2)
--- NOTE | 2018-11-25 07:14 | PN.SURG_ITS ---
Patient Problems: Active and Suspected Problems (Last Updated 11/26/17 @ 13:48 by Leah Clayton) Right upper quadrant pain (Acute) Subjective: Patient still gives her abdominal pain at 5/10, patient did have a bowel movement prior to the MiraLAX last night no further bowel movements. - Physical Exam General: Alert, Oriented x3, Cooperative, No apparent distress Lungs: Normal air movement Cardiovascular: Regular rate Abdomen: Soft, Non Tender - Patient complained of of abdominal pain however on exam patient does not have any tenderness palpation, no peritoneal signs, Non- Distended Extremities: No clubbing, No edema Neurological: Cranial nerves II-XII grossly intact Vital Signs Temp Pulse Resp BP Pulse Ox 98.0 F 72 16 149/88 H 94 11/25/18 01:34 11/25/18 01:34 11/25/18 01:34 11/25/18 01:34 11/25/18 01:34 Oxygen Delivery Method Room Air Weight: 196 lb 13.965 oz Body Mass Index (BMI) 33.7 Intake and Output for Last 24 Hours 11/23/18 11/24/18 11/25/18 23:59 23:59 23:59 Intake Total 6050 / 6050 695 / 695 Output Total 1999 / 1999 Balance 4050 / 4050 695 / 695 Laboratory Tests Past 24 Hrs 11/25/18 05:40 Total Bilirubin 0.50 Direct Bilirubin 0.15 AST 12 L ALT 25 Alkaline Phosphatase 153 H Total Protein 6.2 L Albumin 2.8 L Globulin 3.4 Lipase 65 L Medical Necessity - Tobacco Use Smoking Status: Former smoker Assessment/Plan All Active Problems (Last Updated 11/26/17 @ 13:48 by Leah Clayton) Right upper quadrant pain (Acute) 63 y/o F with RUQ pain, LUQ/epigastric pain on exam, elevated LFT-resolved. We will proceed with EGD this morning patient no further questions at this time. Also likely give patient additional laxatives as her CAT scan did show constipation. Leanne Craig M.D. Pager: [phone] [facility] [address] [place] [address], [facility], [address] [place] [address] Office: [phone]
--- NOTE | 2018-11-25 07:30 | IMM_PTH ---
PATIENT: ZOFIA GRAVES LOC: MS3 U#:[id number] AGE/SX: 63/F ROOM: VA312 RE11/23/[address]: Dr. Hilary Montelongo MD : 1955 BED: 1 DIS: 11/25/2018 SPEC #: [id number] RECD: 11/25/18 13:47 STATUS: SOULuke REQ #: [id number] FRANKIE: 11/25/18 07:[address]: Leanne Craig DEPT: IMMUNOHISTOCHEMISTRY RECD BY: Kim Cedillo ENTERED: 11/25/18 13:48 SP TYPE: IMMUNO OTHR DR: MD Dr. Hilary Perales MD Dr. Prakash Chand, MD Jessica Franklin, [employer] OPERATOR-C Tissues: Stomach, NOS Procedures: H Pylori (initial) PHYSICIAN & INSTITUTION [place] [address] SPECIMEN INFORMATION: Tissue Source: A - Antrum biopsy Clinical Info: Right upper quadrant pain Specimen Number: [id number] CPT code: 22066 METHODOLOGY: Deparaffinized sections of prefer/formalin-fixed tissue or PAP/DQ stained slides are incubated with monoclonal/polyclonal antibodies/oligonucleotide probes. Localization is made via biotin free immunoperoxidase method. Appropriate controls are performed and reacted as expected. Results on target cell population are indicated in the following table: RESULTS: ANTIBODY / CLONE RESULT Block A H Pylori (polyclonal) negative These tests were developed and their performance characteristics determined by [facility]. They may not have been cleared or approved by the U.S. Food and Drug Administration. The FDA has determined that such clearance or approval is not necessary. INTERPRETATION: A. Antrum biopsy: Negative for Helicobacter pylori organisms. SJ:horacio 11/27/18
--- NOTE | 2018-11-25 07:30 | EGD_PTH ---
PATIENT: ZOFIA GRAVES LOC: MS3 U#:[id number] AGE/SX: 63/F ROOM: MS312 RE11/23/[address]: Dr. Hilary Montelongo MD : 1955 BED: 1 DIS: 11/25/2018 SPEC #: [id number] RECD: 11/25/18 12:41 STATUS: SUSU EPHRAIM #: [id number] FRANKIE: 11/25/18 07:[address]: Leanne Craig DEPT: SURGICAL PATHOLOGY RECD BY: Ap Walsh ENTERED: 11/25/18 12:41 SP TYPE: EGD BIOPSY OT DR: MD Dr. Hilary Perales MD Dr. Prakash Chand, MD Jessica Franklin, CONNOR-C Tissues: A - Gastric mucous membrane B - Gastric mucous membrane Procedures: Special Stain Group II Surgery Specimen Level IV Alcian Blue/PAS (control) HEADER OPERATION: EGD ([facility] [place]) PRE-OP DIAGNOSIS: Right upper quadrant pain TISSUE SUBMITTED: A - Antrum biopsy for H. pylori and path, B - GE junction biopsy MICROSCOPIC DIAGNOSIS A. Antrum, biopsy: Mild gastritis. See microscopic description and comment. B. GE junction, biopsy: Fragments of gastroesophageal mucosa with mild chronic inflammation. Intestinal metaplasia (goblet cell metaplasia) is not identified. See comment. SJ:horacio 11/26/18 COMMENT A. The results of immunohistochemistry for Helicobacter pylori will be reported separately ([id number]). B. Alcian blue/PAS stain with matched control is used in the evaluation of the specimen. MICROSCOPIC DESCRIPTION Slides are reviewed. A. The specimen shows fragments of gastric mucosa with chronic inflammatory cell infiltrates in the lamina propria consisting of lymphocytes and plasma cells, consistent with mild chronic gastritis. GROSS DESCRIPTION A - Received in fixative is one container labeled with the patient's name and designated antrum biopsy. The specimen consists of one irregular fragment of light hernandez soft tissue that measures 0.3 x 0.3 x 0.1 cm. The specimen is totally submitted in one cassette. B - Received in fixative is one container labeled with the patient's name and designated GE junction biopsy. The specimen consists of two irregular fragments of light hernandez soft tissue that in aggregate measure 0.5 x 0.3 x 0.1 cm. The specimen is totally submitted in one cassette. / SJ:rg 11/25/18 TC:3 CPT: 52281 x2, 21713
--- NOTE | 2018-11-25 07:47 | OP.ENDO_ITS ---
11/25/2018 Yohannes Ballard Re : Upper GI endoscopy procedure for Ananya Wyatt Dear Nellie This procedure was performed on Sunday, November 25, 2018. My impressions and recommendations are as follows: Impressions : - Z-line irregular, 39 cm from the incisors. Biopsied. - Erythematous mucosa in the antrum. Biopsied. - Erythematous duodenopathy. Biopsied. Recommendations : - Return patient to hospital matute for ongoing care. - Clear liquid diet. - Use Protonix (pantoprazole) 40 mg PO BID on discharge, continue IV this am. - Use sucralfate tablets 1 gram PO QID for 2 weeks. - Continue present medications. My findings are described in the full procedure note, which is enclosed. If I can be of further assistance, please feel free to contact me at Doctor phone number(s): , Work: . Sincerely, MD Leanne De La Cruz MD 11/25/2018 7:47:03 AM This report has been signed electronically.
[2018-11-25] MEDS: Ensure Clear 120 ML Liquid PO ×2 (09:15→11:47)
[2018-11-25] MEDS: Enoxaparin 40 MG/0.4 ML Syringe SC (09:16)
--- NOTE | 2018-11-25 11:06 | DCINST_ITS ---
- Discharge Diagnoses Current Active Problems: Current Active and Chronic Problems (Last Updated 11/26/17 @ 13:48 by Leah Clayton) Right upper quadrant pain (Acute) You will use the following diet at home:: Other - Light diet, advance as tolerated. Discharge Activity: Return to Normal Activity Call your doctor if you observe: Shortness of breath, Dizziness, Fainting spells, Chest pain, Uncontrolled pain Additional Instructions: Avoid NSAIDs (advil, ibuprofen, Aleve), use tylenol as needed for pain. Allergies/Adverse Reactions: Allergies No Known Allergies Allergy (Verified 11/23/18 11:04) Medications to take at Discharge Loratadine [Claritin] 10 mg PO DAILY 10/19/13 traZODone [Desyrel] 100 mg PO DAILY 10/19/13 coenzyme Q10 200 mg capsule 200 mg PO DAILY 11/26/17 Echinacea Purpurea Aerial [Echinacea] 350 mg PO DAILY 11/23/18 L.acidoph,Paracasei, B.lactis [Probiotic] 1 cap PO DAILY 11/23/18 Latanoprost 1 drp OP QHS 11/23/18 Multivitamin with Minerals [Multiple Vitamin] 1 tab PO DAILY 11/23/18 [place]-3/Dha/Epa/Fish Oil [[place] 3 500 Softgel] 1 cap PO DAILY 11/23/18 Rosuvastatin Calcium [Crestor] 5 mg PO QODAY 11/23/18 Pantoprazole Sodium [Protonix] 40 mg PO BID #90 tab 11/25/18 Sucralfate [Carafate] 1 gm PO 1HR_ACHS #60 tab 11/25/18 The following prescriptions were given: Sucralfate [Carafate] 1 gm PO 1HR_ACHS #60 tab Transmission Status: Pending to [facility] Pantoprazole Sodium [Protonix] 40 mg PO BID #90 tab Transmission Status: Pending to [facility] Primary Care Physician: Yohannes Ballard MD [Primary Care Provider] - Please follow up with your Primary Care Physician in: 1 Week Test Results: Test results from this visit will be discussed in further detail at your follow- up appointment, if applicable. Please Follow Up With: Leanne Craig MD When: 1-2 Weeks Proposed Discharge Date: 11/25/18
--- NOTE | 2018-11-25 11:09 | PCM.DC.SUM ---
<Kristen Wharton - Last Filed: 11/25/18 11:19> Discharge Date and Diagnosis Date of Admission: 11/23/18 Date of Discharge: 11/25/18 - Primary Discharge Diagnosis Active and Suspected Problems (Last Updated 11/26/17 @ 13:48 by Leah Clayton) 1. Abdominal pain, gastritis 2. Hyperlipidemia 3. Anxiety 4. Recent herpes zoster dermatitis - Secondary Discharge Diagnosis Chronic Problems (Last Updated 11/26/17 @ 13:48 by Leah Clayton) Anxiety (Chronic) Hyperlipemia (Chronic) Hospital Course and Treatment Imaging Results: Diagnostic Data Abdomen/Pelvis CT 11/23/18 12:35 IMPRESSION: No suspicious solid organ abnormality No CT evidence of an acute inflammatory process No free peritoneal fluid, air, or suspicious adenopathy Electronically Signed: Ritchie Dunham MD at 15:27 EDT , Service support , Hepatobiliary Scan Nuclear Medicine 11/24/18 10:00 IMPRESSION: Normal study Electronically Signed: Ritchie Dunham MD at 11:33 EDT , Service support , Dr. Craig- Surgery Operations: None Procedures: EGD Summary of Care Provided: The patient is a 63 year old F admitted 11/23/2018 due to abdominal pain. 1. Abdominal pain, acute gastritis-CT of abdomen pelvis shows no suspicious solid organ abnormality, no evidence of acute inflammatory process. Patient had abdominal ultrasound 11/19/2018 which showed mild gallbladder wall thickening suggestive of adenomyomatosis. LFTs normal. Mildly elevated alkaline phosphatase. Normal lipase. HIDA scan normal. Dr. Craig, general surgery consult placed. Patient underwent EGD which showed erythematous mucosa in the atrium which was biopsied, erythematous to adenopathy, biopsied as well. Continue Protonix 40 mg twice daily as well as Carafate 1 g p.o. 4 times daily x2 weeks. Follow-up with primary care provider in 1 week. Follow-up with Dr. Craig in 1-2 weeks. 2. Hyperlipidemia-continue statin regimen. 3. Anxiety-continue home trazodone regimen. 4. Recent herpes zoster dermatitis-patient reports rash was primarily right back/flank area. If abdominal pain continues following treatment of #1, suspect pain may be secondary to unresolved postherpetic neuralgia. Follow-up with primary care provider. Recommend shingles vaccine 3 months following most recent acute herpes zoster dermatitis. General: Alert, Oriented x3, Cooperative HEENT: Atraumatic, PERRLA, EOMI, Normocephalic Neck: Supple, No JVD, Negative Carotid Bruits Lungs: Clear to auscultation, Normal air movement Cardiovascular: Regular rate, Regular Rhythm, Normal S1, Normal S2, No murmurs Abdomen: Bowel Sounds Present, Soft, Non-Distended, non-Tender Extremities: No clubbing, No cyanosis, No edema, Capillary Refill Less than 3 Seconds Skin: No rashes, No breakdown Musculoskeletal: No Tenderness to Palpation of Joints or Extremities Neurological: Cranial nerves II-XII grossly intact, Neuro grossly intact Psych/Mental Status: Normal Affect, Appropriate Patient seen and examined prior to discharge. Physical assessment as noted above. Patient is stable for discharge with follow up recommendations as noted above. This patient was seen by HENRIQUE Silva under the supervision of Dr. Montelongo. - Physical Exam Vital Signs Temp Pulse Resp BP Pulse Ox 97.7 F L 71 16 136/73 H 94 11/25/18 09:09 11/25/18 09:09 11/25/18 09:09 11/25/18 09:09 11/25/18 09:09 Oxygen Delivery Method Room Air Weight: 196 lb 13.965 oz Body Mass Index (BMI) 33.7 Intake and Output for Last 24 Hours 11/23/18 11/24/18 11/25/18 23:59 23:59 23:59 Intake Total 6050 / 6050 1695 / 1695 Output Total 1999 / 1999 Balance 4050 / 4050 1695 / 1695 Laboratory Tests Past 24 Hrs 11/25/18 05:40 Total Bilirubin 0.50 Direct Bilirubin 0.15 AST 12 L ALT 25 Alkaline Phosphatase 153 H Total Protein 6.2 L Albumin 2.8 L Globulin 3.4 Lipase 65 L Discharge Diet: Light diet - advance as tolerated Discharge Activity: Return to Normal Activity Call your doctor if you observe: Shortness of breath, Dizziness, Fainting spells, Chest pain, Uncontrolled pain Home Medications: Medications to take at Discharge Loratadine [Claritin] 10 mg PO DAILY 10/19/13 traZODone [Desyrel] 100 mg PO DAILY 10/19/13 coenzyme Q10 200 mg capsule 200 mg PO DAILY 11/26/17 Echinacea Purpurea Aerial [Echinacea] 350 mg PO DAILY 11/23/18 L.acidoph,Paracasei, B.lactis [Probiotic] 1 cap PO DAILY 11/23/18 Latanoprost 1 drp OP QHS 11/23/18 Multivitamin with Minerals [Multiple Vitamin] 1 tab PO DAILY 11/23/18 [place]-3/Dha/Epa/Fish Oil [[place] 3 500 Softgel] 1 cap PO DAILY 11/23/18 Rosuvastatin Calcium [Crestor] 5 mg PO QODAY 11/23/18 Pantoprazole Sodium [Protonix] 40 mg PO BID #90 tab 11/25/18 Sucralfate [Carafate] 1 gm PO 1HR_ACHS #60 tab 11/25/18 Following Prescrptions Were Given to Patient: Sucralfate [Carafate] 1 gm PO 1HR_ACHS #60 tab Transmission Status: Received by [facility] Pantoprazole Sodium [Protonix] 40 mg PO BID #90 tab Transmission Status: Received by [facility] Primary Care Physician: Yohannes Ballard MD [Primary Care Provider] - Please follow up with your Primary Care Physician in: 1 Week Please Follow Up With: Leanne Craig MD When: 1-2 Weeks Disposition: Home Minutes spent on discharge:: 35 Patient Condition:: Stable Medical Necessity - Tobacco Use Smoking Status: Former smoker Meaningful Use Info Meaningful Use Diagnoses (Choose all that apply): None applicable <JaydaRjgema E - Last Filed: 11/25/18 12:31> Discharge Date and Diagnosis - Secondary Discharge Diagnosis Chronic Problems (Last Updated 11/26/17 @ 13:48 by Leah Clayton) Anxiety (Chronic) Hyperlipemia (Chronic) Hospital Course and Treatment Summary of Care Provided: Hospitalist note: Discharge summary above reviewed and I concur with the above discharge and treatment plan. Patient was admitted because of right upper quadrant abdominal pain that has been going on for several weeks. She has history of shingles on the right lateral chest. Patient was treated as a case of postherpetic neuralgia for this right upper quadrant abdominal pain as outpatient with increasing dose of gabapentin but without improvement. During this hospital stay, CT scan abdomen and pelvis with contrast revealed no evidence of acute intra-abdominal pathology, revealed normal liver, normal gallbladder and extrahepatic with persistent as well as normal spleen and pancreas and normal kidneys. Routine blood work was unremarkable. LFT revealed normal bilirubin both total and direct, normal liver transaminases but her alkaline phosphatase was slightly elevated but trending down. Urine analysis showed no evidence of infection. Patient was treated with IV fluids and IV pain medications. She had a HIDA scan done that was normal without evidence of acute cholecystitis. General surgery consulted and recommended to undergo upper EGD. Upper EGD done and revealed clinical findings consistent with gastritis. Patient was started on PPI. Patient discharged home in a stable medical condition, started on Protonix 40 mg p.o. twice daily as well as Carafate 1 g p.o. CHS, continued on her previous home medication without any changes, recommended follow-up with PCP in a week, plan to follow-up with general surgery in 1 to 2 weeks. - Physical Exam General: Alert, Oriented x3, Cooperative, No apparent distress. HEENT: Atraumatic, PERRLA, EOMI. Neck: Supple, No JVD, Negative Carotid Bruits, Trachea Midline, Thyroid Normal. Lungs: Clear to auscultation, Normal air movement, No rhonchi, No wheeze, No rales. Cardiovascular: Regular rate, Regular Rhythm, Normal S1, Normal S2, PMI Normal. Abdomen: Bowel Sounds Present, Soft, Non Tender, Non-Distended, No Hepato-splenomegaly. Extremities: No clubbing, No cyanosis, No edema Skin: No rashes, No breakdown Neurological: Cranial nerves are intact, neuro grossly intact Vital Signs are stable. This note was generated with [employer] dictation software. It may contain incorrect words, spelling, and punctuation that were not noted in checking the note before signing. - Physical Exam Vital Signs Temp Pulse Resp BP Pulse Ox 98.1 F 75 16 152/87 H 95 11/25/18 11:48 11/25/18 11:48 11/25/18 11:48 11/25/18 11:48 11/25/18 11:48 Oxygen Delivery Method Room Air Weight: 196 lb 13.965 oz Body Mass Index (BMI) 33.7 Intake and Output for Last 24 Hours 11/23/18 11/24/18 11/25/18 23:59 23:59 23:59 Intake Total 6050 / 6050 2451 / 2451 Output Total 1999 Balance 4050 / 4050 2451 / 2451 Laboratory Tests Past 24 Hrs 11/25/18 05:40 Total Bilirubin 0.50 Direct Bilirubin 0.15 AST 12 L ALT 25 Alkaline Phosphatase 153 H Total Protein 6.2 L Albumin 2.8 L Globulin 3.4 Lipase 65 L Disposition: Home Minutes spent on discharge:: 26 Patient Condition:: Stable Meaningful Use Info Meaningful Use Diagnoses (Choose all that apply): None applicable Code Visit OBSV E&M: 58572 Observation care discharge
[2018-11-25] MEDS: Sucralfate 1 GM Tablet PO (11:46)
== END 2018-11-25 13:35 | disposition home or self-care (01) ==
LOC: ED 11:30 → MS3 18:48
PROVIDERS: Surgery; Admitting Provider Internal Medicine; Emergency Provider Emergency Medicine; Visit Provider Hospitalist
PROC: 0DJ08ZZ Inspection of Upper Intestinal Tract, Via Natural or Artificial Opening Endoscopic (ICD-10-PCS; CPT 43235; principal; 2018-11-25 07:25)
DX: K29.70 Gastritis, unspecified, without bleeding (principal); F41.9 Anxiety disorder, unspecified; E78.5 Hyperlipidemia, unspecified; M19.90 Unspecified osteoarthritis, unspecified site; Z79.899 Other long term (current) drug therapy; Z87.891 Personal history of nicotine dependence; B02.9 Zoster without complications
CPT/HCPCS: 43239; 36415; 74177; 78227; 80053; 80076; 81001; 83690; 85025; 88305; 88313; 88342; 93005; 96361; 96365; 96366; 96372; 96375; 96376; 99218; 99283; A9537; J7030; Q9967; A4216; G0378; J2405; J2805

== ENCOUNTER → 2019-05-03 12:02 | Outpatient (CLI) | payer OTHER, SELFPAY ==
--- NOTE | 2019-05-03 12:02 | BI_ITS ---
MAMMOGRAPHY - BILATERAL SCREENING 3-D TOMOSYNTHESIS REASON FOR EXAM: Female, 64 years old. FAM HX PAT AUNT AGE 65 NO SX PERTINENT HISTORY: No significant family history. TECHNIQUE: 2-D mammograms and 3-D Tomosynthesis of the breast (s) were performed. CAD was performed. COMPARISON: February 09, 2018. FINDINGS: The breast composition is composed of scattered fibroglandular density. Scattered benign calcifications are seen. No suspicious dense spiculated masses or suspicious microcalcifications are identified. No architectural distortion is identified. There is no skin thickening or retraction. There is a more conspicuous, approximately 1 cm reniform nodule with lucent/fatty hilum within the slightly upper right lateral breast that is positioned 4 cm from the nipple base on the MLO view and 4.8 cm from the nipple base on the cc views. This finding is most compatible with an intramammary lymph node. There are scattered typically benign-appearing calcifications. There has been no significant change since the prior study. BI/SCREEN MAMM (CAD) W/KAI BILAT IMPRESSION: No mammographic signs of malignancy. Routine yearly mammograms recommended. ASSESSMENT CATEGORY: BIRADS Category 2: Benign. A letter regarding these results will be sent to the patient by the facility within 30 days. FOLLOW UP RECOMMENDATION: Yearly follow up mammogram recommended. (A) Approximately 10% of breast cancers are not detected by mammography. A normal mammogram should not delay biopsy of a clinically suspicious abnormality. Electronically Signed: Manish Pike MD at 14:04 EST , Service support ,
== END ==
PROVIDERS: Referring Provider Nurse Practitioner Women's Health; Visit Provider Nurse Practitioner Women's Health
DX: Z12.31 Encounter for screening mammogram for malignant neoplasm of breast (principal)
CPT/HCPCS: 77063; 77067

== ENCOUNTER → 2020-06-06 12:22 | Outpatient (CLI) | payer MEDICARE, OTHER, SELFPAY ==
[2019-05-03 12:33] VITALS: BMI 33.7
--- NOTE | 2020-06-06 12:28 | BI_ITS ---
MAMMOGRAPHY - BILATERAL SCREENING REASON FOR EXAM: Female, 65 years old. Routine annual screening examination. PERTINENT HISTORY: Aunt with breast cancer. TECHNIQUE: Digital bilateral breast kai (3D mammographic acquisition) in the CC and MLO projections. 2-D mediolateral oblique (MLO) and craniocaudad (CC) views of both breasts were obtained. CAD: Full Field Digital Mammography with Computer Added Detection was performed. COMPARISON: Comparison is made with prior study dated 05/03/2019 and 02/09/2018. FINDINGS: Breast Composition: There are scattered areas of fibroglandular density. There are no dominant masses or suspicious calcifications. Stable benign-appearing bilateral axillary. Stable 4.8 mm well-defined nodule in the retroareolar region of the right breast. This most likely represents a small lymph node. No other significant abnormalities are identified. There has been no significant change since the prior study. BI/SCRN MAMM (CAD)W/KAI BILAT IMPRESSION: Stable bilateral screening mammogram. Yearly follow-up mammogram recommended. (A) ASSESSMENT CATEGORY: BIRADS Category 2: Benign. A letter regarding these results will be sent to the patient by the facility within 30 days. Approximately 10% of breast cancers are not detected by mammography. A normal mammogram should not delay biopsy of a clinically suspicious abnormality. [id number] Electronically Signed: Delfino Zhang MD at 13:18 EST , Service support ,
== END ==
PROVIDERS: Referring Provider Nurse Practitioner Women's Health; Visit Provider Nurse Practitioner Women's Health
DX: Z12.31 Encounter for screening mammogram for malignant neoplasm of breast (principal); R30.9 Painful micturition, unspecified
CPT/HCPCS: 77063; 77067; 87070; 87077; 87086; 87088; 87205

== ENCOUNTER → 2022-07-17 | Outpatient (CLI) | payer MEDICARE, OTHER, SELFPAY ==
--- NOTE | 2022-07-17 10:41 | BI_ITS ---
MAMMOGRAPHY - BILATERAL SCREENING 3-D TOMOSYNTHESIS REASON FOR EXAM: Female, 67 years old. Routine screening PERTINENT HISTORY: No significant family history. TECHNIQUE: 2-D mammograms and 3-D Tomosynthesis of the breast (s) were performed. CAD was performed. COMPARISON: 05/03/2019 FINDINGS: The breast composition is almost entirely fat. Scattered benign calcifications are seen. No dense spiculated masses or suspicious microcalcifications are identified. No architectural distortion is identified. There is no skin thickening or retraction. There has been no significant change since the prior study. BI/SCRN MAMM (CAD)W/KAI BILAT IMPRESSION: No mammographic signs of malignancy. Routine yearly mammograms recommended. ASSESSMENT CATEGORY: BIRADS Category 1: Negative. A letter regarding these results will be sent to the patient by the facility within 30 days. FOLLOW UP RECOMMENDATION: Yearly follow up mammogram recommended. (A) Approximately 10% of breast cancers are not detected by mammography. A normal mammogram should not delay biopsy of a clinically suspicious abnormality. Electronically Signed: Ritchie Dunham MD at 11:47 EDT ,
== END | disposition home or self-care (01) ==
LOC: OPBI 10:39
PROVIDERS: PCP Nurse Practitioner Family; Visit Provider Nurse Practitioner Women's Health
DX: Z12.31 Encounter for screening mammogram for malignant neoplasm of breast (principal)
CPT/HCPCS: 77063; 77067

== ENCOUNTER → 2023-08-19 | Outpatient (CLI) | payer MEDICARE, OTHER, SELFPAY ==
--- NOTE | 2023-08-19 10:47 | BI_ITS ---
MAMMOGRAPHY - BILATERAL SCREENING REASON FOR EXAM: Female, 68 years old. Routine annual screening examination. PERTINENT HISTORY: Aunt with breast cancer. TECHNIQUE: Digital bilateral breast kai (3D mammographic acquisition) in the CC and MLO projections. 2-D mediolateral oblique (MLO) and craniocaudad (CC) views of both breasts were obtained. CAD: Full Field Digital Mammography with Computer Added Detection was performed. COMPARISON: Comparison is made with prior study dated July 17, 2022 and June 06, 2020. FINDINGS: Breast Composition: The breasts are almost entirely fatty. There are no dominant masses or suspicious calcifications. Stable 4.8 mm well-defined nodule in the retroareolar region of the right breast. This most likely represents a small intramammary lymph node. Stable small benign appearing bilateral axillary lymph nodes. No other significant abnormalities are identified. There has been no significant change since the prior study. BI/SCRN MAMM (CAD)W/KAI BILAT IMPRESSION: Stable bilateral screening mammogram. Yearly follow-up mammogram recommended. (A) ASSESSMENT CATEGORY: BIRADS Category 2: Benign. A letter regarding these results will be sent to the patient by the facility within 30 days. Approximately 10% of breast cancers are not detected by mammography. A normal mammogram should not delay biopsy of a clinically suspicious abnormality. [id number] Electronically Signed: Delfino Zhang MD at 12:29 EDT ,
== END | disposition home or self-care (01) ==
LOC: OPBI 10:45
PROVIDERS: PCP Nurse Practitioner Family; Referring Provider Nurse Practitioner Family; Visit Provider Nurse Practitioner Family
DX: Z12.31 Encounter for screening mammogram for malignant neoplasm of breast (principal)
CPT/HCPCS: 77063; 77067